=== PATIENT | male | born 1995 | race Hispanic/Latino ===

== ENCOUNTER → 2022-04-09 | Outpatient (CLI) | payer MEDICAID ==
[~2022-04-09] MED LIST: IOHEXOL 350 MG/ML 100ML INFUS..BTL IV ONE; METOPROLOL TARTRATE 1 MG/ML 5ML VIAL IV ONE
== END | disposition home or self-care (01) ==
LOC: RAH 11:13
PROVIDERS: ATTEND Student in an Organized Health Care Education/Training Program
DX: R07.9 Chest pain, unspecified (principal); M47.815 Spondylosis without myelopathy or radiculopathy, thoracolumbar region
CPT/HCPCS: 75574; J3490; Q9967

== ENCOUNTER → 2022-06-30 | Outpatient (CLI) | payer MEDICAID ==
[2022-06-30 13:08] LABS: CHOLESTEROL 232 mg/dL (<200); HDL CHOLESTEROL 34 mg/dL (29-71); LDL DIRECT 174 mg/dL (0-99); TRIGLYCERIDES 105 mg/dL (30-200)
== END | disposition home or self-care (01) ==
LOC: LAB 09:02
PROVIDERS: ATTEND Student in an Organized Health Care Education/Training Program
DX: E78.2 Mixed hyperlipidemia (principal); R00.2 Palpitations
CPT/HCPCS: 36415; 80061

== ENCOUNTER → 2023-01-06 | Outpatient (CLI) | payer OTHER ==
[2023-01-06 12:52] LABS: CHOLESTEROL 233 mg/dL (<200); HDL CHOLESTEROL 39 mg/dL (29-71); LDL DIRECT 168 mg/dL (0-99); TRIGLYCERIDES 66 mg/dL (30-200)
== END | disposition home or self-care (01) ==
LOC: LAB 08:23
PROVIDERS: ATTEND Student in an Organized Health Care Education/Training Program
DX: E78.2 Mixed hyperlipidemia (principal)
CPT/HCPCS: 36415; 80061